=== PATIENT | female | born 1985 ===

== ENCOUNTER 2016-10-04 07:50 | Emergency (ER) | payer BC ==
[2016-10-04 08:19] VITALS: BP 132/88
[2016-10-04] MEDS ORDERED: predniSONE TAB* 20 MG PO ONE (08:31)
--- NOTE | 2016-10-04 08:32 | UC ---
Throat Pain/Nasal David HPI - HPI Summary HPI Summary: 30 female presents complaining of a sore throat that began Tuesday10/02/16. She states before Tuesday she had a very mild sore throat just in the mornings that got better as the day went on however it has gotten progressively worse and has become constant. She feels as though her throat is swollen and it is very difficult to swallow. Also complains of b/l ear pressure that began yesterday. Admits to some nasal congestion and headache. Denies cough, sinus pressure, chest pain, difficulty breathing, fever/chills, and abdominal symptoms. She does not know of any sick contacts and has not recently been on any antibiotics. She has not tried taking anything. Has not had any recent dental work. Denies fatigue - History of Current Complaint Chief Complaint: UCRespiratory Stated Complaint: SORE THROAT EARS Time Seen by Provider: 10/04/16 08:17 Hx Obtained From: Patient Hx Last Menstrual Period: 4 days ago ?: No Onset/Duration: Sudden Onset, Lasting Days, Worse Since Severity: Mild Pain Intensity: 7 Pain Scale Used: 0-10 Numeric Cough: None Associated Signs & Symptoms: Positive: Dysphagia, Nasal Discharge - Allergies/Home Medications Allergies/Adverse Reactions: Allergies Allergy/AdvReac Type Severity Reaction Status Date / Time No Known Allergies Allergy Verified 10/04/16 08:12 PMH/Surg Hx/FS Hx/Imm Hx Endocrine History Of: Denies: Diabetes Cardiovascular History Of: Denies: Hypertension Respiratory History Of: Denies: COPD - Surgical History Surgical History: Yes Surgery Procedure, Year, and Place: c section x 2, right knee - Family History Known Family History: Positive: None - Social History Alcohol Use: Occasionally Substance Use Type: None Smoking Status (MU): Never Smoked Tobacco Review of Systems Constitutional: Negative Skin: Negative Eyes: Negative ENT: Sore Throat, Ear Ache, Nasal Discharge Respiratory: Negative Cardiovascular: Negative Gastrointestinal: Negative Neurovascular: Negative Musculoskeletal: Negative Neurological: Negative Psychological: Negative All Other Systems Reviewed And Are Negative: Yes Physical Exam Triage Information Reviewed: Yes Appearance: Well-Appearing, No Pain Distress, Well-Nourished Vital Signs: Initial Vital Signs Temp 98.3 F 10/04/16 08:05 Pulse 82 10/04/16 08:05 Resp 18 10/04/16 08:05 BP 151/99 10/04/16 08:05 Pulse Ox 100 10/04/16 08:05 Vital Signs Reviewed: Yes Eyes: Positive: Conjunctiva Clear ENT: Positive: Hearing grossly normal, Pharyngeal erythema, Nasal congestion, TMs normal - After irrigation of both ears, TMs normal without bulging, redness and dullness, Tonsillar swelling, Tonsillar exudate Dental: Positive: Cervical Lymphadenopathy. Negative: Percussion Tenderness @ Neck: Positive: Supple, Nontender Respiratory: Positive: Chest non-tender, Lungs clear, Normal breath sounds, No respiratory distress, No accessory muscle use Cardiovascular: Positive: RRR, No Murmur, Pulses Normal, Brisk Capillary Refill Abdominal Exam: Normal Abdomen Description: Positive: Nontender, Soft. Negative: No Organomegaly, Hepatomegaly, Splenomegaly Bowel Sounds: Positive: Present Musculoskeletal: Positive: Strength Intact, ROM Intact Psychological Exam: Normal Skin Exam: Normal Re-Evaluation - Re-Evaluation First Eval Re-Evaluation Time: 08:55 Change: Improved - ear pressure felt much better and improved hearing after irrigation b/l Throat Pain/Nasal Course/Dx - Course Course Of Treatment: strep culture obtained and negative. according to centor criteria, physical exam findings and history of symptoms, patient will be treated at this time. educated about mononucleosis. - Differential Dx/Diagnosis Differential Diagnosis/HQI/PQRI: Laryngitis, Mononucleosis, Pharyngitis, Sinusitis, Tonsillitis Provider Diagnoses: pharyngitis Discharge - Discharge Plan Condition: Stable Disposition: HOME Prescriptions: Amoxicillin CAP* 500 mg PO Q12H #20 cap Patient Education Materials: Pharyngitis (ED) Referrals: [facility] [place] [facility] [Outside] Additional Instructions: Take prescribed antibiotic until entire dose is completed, even if symptoms start to improve. Gargle with salt water and try using Chloraseptic spray to help with the sore throat. Take Ibuprofen/Tylenol as needed for pain and fever. Recommend taking probiotics or eating croatian yogurt a few hours after taking antibiotic to replenish the good bacteria. If symptoms worsen or do not improve please return.
== END 2016-10-04 09:21 | disposition home or self-care (01) ==
LOC: UCCORT 07:50
DX: J02.9 Acute pharyngitis, unspecified (principal); R09.81 Nasal congestion; R51 Headache
CPT/HCPCS: 87651; 99212; G0463; J7512